=== PATIENT | male | born 1985 | race African-American/Black ===

== ENCOUNTER 2017-01-12 11:50 | Emergency (ER) | payer OTHER ==
[~2017-01-12] VITALS: Ht 185.4 cm; Wt 94.0 kg
[2017-01-12] MEDS ORDERED: CLEOCIN300 MG PO (13:42)
[2017-01-12 14:00] VITALS: BP 166/64
== END 2017-01-12 14:50 | disposition home or self-care (01) ==
LOC: EME 11:50
DX: K04.7 Periapical abscess without sinus (principal); F17.200 Nicotine dependence, unspecified, uncomplicated
CPT/HCPCS: 99281; 99284